=== PATIENT | female | born 1950 | race African-American/Black ===

== ENCOUNTER 2017-08-01 18:01 | Observation (INO) | payer MEDICARE, MEDICAID ==
[2017-08-01] MEDS ORDERED: hydrALAZINE 20 MG/ML VIAL ONE (18:41)
[2017-08-01] MEDS ORDERED: methylPREDNISolone Sod Succ/PF 125 MG/2 ML VIAL ONE (18:41)
[2017-08-01] MEDS ORDERED: Nitroglycerin 2% Ointment 1 INCH/1 GM Packet ONE (18:41)
[2017-08-01 18:42] LABS: #Eosinphils 0.6 thou/uL (0.0-0.7); #Lymphocytes 1.5 thou/uL (1.20-3.40); #Monocytes 0.7 thou/uL (0.11-0.59); #Neutrophils 3.6 thou/uL (1.40-6.50); %Basophils 0.6 % (0.0-1.0); %Eosinophils 9.7 % (0.0-10.0); %Lymphocytes 23.9 % (21.0-51.0); %Monocytes 10.4 % (0.0-10.0); Hematocrit 35.7 % (36.0-47.0); Mean Platelet Volume 8.8 fL (7.4-10.4); Red Blood Cell (RBC) Count 3.45 mill/uL (4.20-5.40); White Blood Cell (WBC) Count 6.4 thou/uL (4.8-10.8)
[2017-08-01] MEDS ORDERED: Water For Inject, Bacteriostat 30 ML ONE (18:44)
[2017-08-01 18:56] LABS: Lactic Acid - Sepsis 1.4 mmol/L (0.5-2.2)
[2017-08-01 19:00] LABS: CK (CPK) 92 U/L (29-168); Lipase 9 U/L (8-78)
[2017-08-01 19:04] LABS: ALT (SGPT) 10 U/L (8-55); AST (SGOT) 23 U/L (5-34); Alkaline Phosphatase 78 U/L (40-150); Anion Gap 12 mmol/L (10-20); BUN (Urea Nitrogen) 25 mg/dL (9.8-20.1); Bilirubin, Total 0.6 mg/dL (0.2-1.2); Calc. Creatinine Clearance 0 mL/min (70-130); Calcium 9.4 mg/dL (7.8-10.44); Carbon Dioxide 32 mmol/L (23-31); Chloride 99 mmol/L (98-107); Estimated GFR-MDRD 32; Globulin 4.9 g/dL (2.4-3.5); Protein, Total 8.4 g/dL (6.0-8.3)
[2017-08-01 19:04] LABS: Troponin I 0.013 ng/mL (< 0.028)
--- NOTE | 2017-08-01 19:38 | RAD ---
AP VIEW OF THE CHEST 08/01/17 INDICATION: Cough. COMPARISON: None. FINDINGS: There is cardiomegaly with pulmonary with pulmonary vascular congestion. No air space consolidation o r pleural effusions evident. No acute osseous abnormality is evident. IMPRESSION: Cardiomegaly with mild pulmonary vascular congestion. POS: [facility]
[2017-08-01] MEDS ORDERED: Acetaminophen 325 MG TAB PO PRN ×2 (21:21→23:26)
[2017-08-01] MEDS ORDERED: Ondansetron HCl/PF 4 MG/2 ML Vial IVP PRN ×2 (21:21→23:26)
[2017-08-01] MEDS ORDERED: Ondansetron ODT 4 MG TAB SL PRN (21:21)
[2017-08-01] MEDS ORDERED: Nitroglycerin 2% Ointment 1 INCH/1 GM Packet TOP SCH (21:30)
[2017-08-01 22:11] LABS: Troponin I 0.018 ng/mL (< 0.028)
[2017-08-01] MEDS ORDERED: hydrALAZINE 20 MG/ML VIAL SLOW IVP PRN ×2 (22:59→23:31)
[2017-08-01] MEDS ORDERED: Senokot 8.6 MG TAB PO PRN (23:26)
[2017-08-01] MEDS ORDERED: Ondansetron ODT 4 MG TAB PO PRN (23:26)
[2017-08-01] MEDS ORDERED: Nitroglycerin 0.4 MG TAB (25 Tab Bottle) PO PRN (23:26)
[2017-08-01] MEDS ORDERED: Cefdinir 300 MG CAP PO SCH (23:30)
[2017-08-01] MEDS ORDERED: Diabetic Tussin 200 MG/10 ML UDCUP PO PRN (23:32)
--- NOTE | 2017-08-02 | HP ---
DATE OF ADMISSION: 08/01/2017 PRIMARY CARE PHYSICIAN: Dr. Singleton at [facility]. CODE STATUS: FULL CODE. SURROGATE DECISION-MAKER: The patient makes her own decision with the help of her family. CHIEF COMPLAINT: Shortness of breath of 10 days duration. HISTORY OF PRESENT ILLNESS: The patient is a 66-year-old female with chronic respiratory failure on home oxygen, COPD, obstructive sleep apnea on BiPAP, and morbid obesity, presented to the emergency r oom with worsening shortness of breath over the last 10 days. The patient normally sees Dr. Rios and has a followup appointment later this month. She had some cough productive of thick whitish phlegm along with low grade fever. Shortness of breath continued to progress despite taking nebulization ev mae 4 hours. She also noticed worsening bilateral lower extremity swelling. Shortness of breath was worse on mild exertion. She denies recent immobilization, travel. She spends most of the time sitt ing on the wheelchair. No sick contacts reported. In the emergency room, her initial vital signs showed temperature 98.6, respiration of 21, pulse rate of 104 with blood pressure of 218/104 with O2 saturation of 93% on 4 liter nasal cannula. Chest x-r ay showed pulmonary vascular congestion with cardiomegaly. WBC counts were 6.4 without left shift. BNP was 110. She received 125 mg Solu-Medrol, 10 mg of IV hydralazine, aspirin with 1 inch nitro pat ch. Symptoms somewhat improved with the above measures. PAST MEDICAL HISTORY: 1. COPD. 2. Chronic respiratory failure on home oxygen at 3 liters continuous. 3. Morbid obesity. 4. Dyslipidemia. 5. Obstructive sleep apnea, on BiPAP. The patient does not remember her BiPAP settings. 6. Hypothyroidism. 7. Depression. 8. Gout. 9. Chronic anemia. 10. Chronic pain syndrome. 11. Degenerative joint disease. PAST SURGICAL HISTORY: 1. Exploratory laparotomy, details unavailable. 2. Total abdominal hysterectomy with bilateral salpingo-oophorectomy. ALLERGIES: The patient denies any drug allergies. CURRENT HOME MEDICATIONS: To be verified with the nursing facility. We will try to contact the [facility] for accurate list of medications. SOCIAL HISTORY: The patient currently lives at the nursing facility, she is . She spends mos t of the time on the wheelchair. She ambulates short distances with the help of a walker. No curren t use of alcohol, tobacco or drug use. FAMILY HISTORY: Father at age of 67 with heart disease. Mother with multiple TIAs. One br other with hepatic cancer. REVIEW OF SYSTEMS: The following complete review of systems was negative, unless otherwise mentioned in the HPI or below: Constitutional: Weight loss or gain, ability to conduct usual activities. Skin: Rash, itching. Eyes: Double vision, pain. ENT/Mouth: Nose bleeding, neck stiffness, pain, tenderness. Cardiovascular: Palpitations, dyspnea on exertion, orthopnea. Respiratory: Shortness of breath, wheezing, cough, hemoptysis, fever or night sweats. Gastrointestinal: Poor appetite, abdominal pain, heartburn, nausea, vomiting, constipation, or diarr hea. Genitourinary: Urgency, frequency, dysuria, nocturia. Musculoskeletal: Pain, swelling. Neurologic/Psychiatric: Anxiety, depression. Allergy/Immunologic: Skin rash, bleeding tendency. PHYSICAL EXAMINATION: VITAL SIGNS: As discussed above. GENERAL: A 66-year-old morbidly obese female in mild respiratory distress, audible wheezing heard, a ble to complete short phrases. HEENT: Head: Atraumatic, normocephalic. Sclerae anicteric. Moist mucous membranes. No oral lesio n. NECK: Supple, no JVD appreciated. No carotid bruit. LUNGS: Showed diffuse expiratory wheezing with scattered rhonchi. Lungs were symmetrical. Trachea midline. HEART: S1, S2 present. Regular rate and rhythm. No heaves or pulsation. No significant murmurs ap preciated. ABDOMEN: Obese, soft. Bowel sounds present. EXTREMITIES: A 2 to 3+ edema in bilateral lower extremities with some calf tenderness. SKIN: Warm and dry. LYMPH NODES: No palpable lymph nodes in the neck. PERIPHERAL VASCULAR: Radial pulses palpable bilaterally. MUSCULOSKELETAL: No joint swelling or tenderness. SKIN: Warm and dry. LABORATORY DATA AND X-RAY FINDINGS: CBC showed WBC 6.4 with hemoglobin 10.7, hematocrit 35.7, and pl atelet 223. Chemistries showed sodium 138, potassium 5, chloride 99, bicarbonate 32, BUN 25, creatin ine 1.61. Troponins were normal. Lactic acid 1.4. Echocardiogram from 2016 showed normal left vent ricular ejection fraction of 55% to 60%. Chest x-ray by my review as discussed above. EKG by my rev iew showed sinus rhythm without significant ST-T wave changes. Please note that the patient has two different medical records in our computer system. FINAL DIAGNOSES: 1. Hypertensive urgency. 2. Chronic obstructive pulmonary disease exacerbation. 3. Chronic respiratory failure on home oxygen. 4. Worsening bilateral lower extremity swelling, rule out deep venous thrombosis. 5. Dyslipidemia. 6. Obstructive sleep apnea on BiPAP, settings unknown. 7. Hypothyroidism. 8. Depression. 9. Gout. 10. Morbid obesity. 11. Chronic anemia secondary to iron deficiency. 12. Gastroesophageal reflux disease. 13. Physical deconditioning. PLAN: The patient will be monitored on the telemetry unit. We will confirm home medications and sta rt them accordingly. Nebulizer treatment every 4 hours. She received IV steroids in the emergency r oom. We will start her on oral steroids with antibiotics. We will start her on BiPAP after confirmi ng settings from [facility]. We will continue to monitor closely. Lifestyle modificatio n was emphasized. Deep venous thrombosis prophylaxis. We will also rule out thrombosis due to bilat eral lower extremity swelling as well as tenderness. Plan of care was discussed with the patient, she stated understanding.
[2017-08-02 00:01] VITALS: BMI 71.8
[2017-08-02 01:48] LABS: Troponin I 0.019 ng/mL (< 0.028)
[2017-08-02] MEDS: Levothyroxine Sodium 75 MCG TAB PO SCH (03:06)
[2017-08-02 04:54] LABS: #Lymphocytes 0.5 thou/uL (1.20-3.40); #Monocytes 0.1 thou/uL (0.11-0.59); #Neutrophils 3.8 thou/uL (1.40-6.50); %Lymphocytes 10.3 % (21.0-51.0); %Monocytes 1.8 % (0.0-10.0); Hematocrit 36.6 % (36.0-47.0); Mean Platelet Volume 8.1 fL (7.4-10.4); Red Blood Cell (RBC) Count 3.55 mill/uL (4.20-5.40); White Blood Cell (WBC) Count 4.4 thou/uL (4.8-10.8)
[2017-08-02 05:06] LABS: Anion Gap 10 mmol/L (10-20); BUN (Urea Nitrogen) 24 mg/dL (9.8-20.1); Calc. Creatinine Clearance 109 mL/min (70-130); Calcium 9.5 mg/dL (7.8-10.44); Carbon Dioxide 35 mmol/L (23-31); Chloride 98 mmol/L (98-107); Estimated GFR-MDRD 40
[2017-08-02] MEDS ORDERED: Budesonide 0.5 MG/2 ML NEB INH SCH (06:30)
[2017-08-02] MEDS: Cefdinir 300 MG CAP PO SCH ×2 (08:16→22:24)
[2017-08-02] MEDS: Docusate 100 MG CAP PO SCH ×2 (08:21→22:24)
[2017-08-02] MEDS: Furosemide 20 MG TAB PO SCH ×2 (08:21→14:54)
[2017-08-02] MEDS: Citalopram 20 MG TAB PO SCH (08:21)
[2017-08-02] MEDS: predniSONE 20 MG TAB PO SCH ×2 (08:21→18:41)
[2017-08-02] MEDS: Aspirin 81 mg Enteric Coated Tablet PO SCH (08:21)
[2017-08-02] MEDS: Famotidine 20 MG TAB PO SCH ×2 (08:21→22:24)
[2017-08-02] MEDS: Colchicine 0.6 MG TAB PO SCH (08:21)
[2017-08-02] MEDS: Enoxaparin Sodium 40 MG/0.4 ML SYRINGE SC SCH (08:22)
[2017-08-02] MEDS ORDERED: Mometasone/Formoterol 120 PUFF INHALER INH SCH (09:00)
[2017-08-02] MEDS ORDERED: Metoprolol Tartrate 25 MG TAB PO SCH (11:30)
--- NOTE | 2017-08-02 13:02 | PDOC.PN ---
- Subjective Encounter Start Date: 08/02/17 Encounter Start Time: 12:59 Subjective: feels about the same. still c/o SOB. -: c/o R sided abdominal pain. no nausea/vomiting.No constipation - Objective Resuscitation Status: Resuscitation Status FULL:Full Resuscitation MAR Reviewed: Yes Vital Signs & Weight: Vital Signs (12 hours) Temp Pulse Resp BP Pulse Ox 08/02/17 12:07 97.3 F L 87 22 H 188/88 H 94 L 08/02/17 11:44 96 16 08/02/17 11:36 96 16 08/02/17 08:15 98.1 F 94 22 H 08/02/17 07:55 98.1 F 94 22 H 185/84 H 94 L 08/02/17 06:28 96 08/02/17 06:27 92 12 08/02/17 03:08 97.6 F 97 24 H 171/77 H 93 L Weight Weight 445 lb 5.34 oz I&O: 08/01/17 08/02/17 08/03/17 06:59 06:59 06:59 Intake Total 180 250 Balance 180 250 Result Diagrams: 08/02/17 04:31 08/02/17 04:31 Phys Exam - Physical Examination Constitutional: NAD HEENT: PERRLA, moist MMs, sclera anicteric, oral pharynx no lesions Neck: no nodes, no JVD, supple, full ROM Respiratory: no rales, no rhonchi, wheezing present, clear to auscultation bilateral Cardiovascular: RRR, no significant murmur Gastrointestinal: soft, non-tender, no distention, positive bowel sounds morbidly obese.pitting edema Musculoskeletal: pulses present, edema present Neurological: non-focal, normal sensation, moves all 4 limbs Psychiatric: normal affect, A&O x 3 Skin: no rash Dx/Plan (1) Acute and chronic respiratory failure Code(s): J96.20 - ACUTE AND CHR RESP FAILURE, UNSP W HYPOXIA OR HYPERCAPNIA Status: Acute Qualifiers: Respiratory failure complication: hypoxia and hypercapnia Qualified Code(s) : J96.21 - Acute and chronic respiratory failure with hypoxia; J96.22 - Acute and chronic respiratory failure with hypercapnia; J96.22 - Acute and chronic respiratory failure with hypercapnia; J96.22 - Acute and chronic respiratory failure with hypercapnia (2) Acute exacerbation of chronic obstructive pulmonary disease (COPD) Code(s): J44.1 - CHRONIC OBSTRUCTIVE PULMONARY DISEASE W (ACUTE) EXACERBATION Status: Acute (3) Morbid obesity due to excess calories Code(s): E66.01 - MORBID (SEVERE) OBESITY DUE TO EXCESS CALORIES Status: Chronic (4) h/o SBO Status: Chronic (5) BORA (obstructive sleep apnea) Code(s): G47.33 - OBSTRUCTIVE SLEEP APNEA (ADULT) (PEDIATRIC) Status: Chronic Comment: BiPAP at night (6) Hypertensive urgency Code(s): I16.0 - HYPERTENSIVE URGENCY Status: Resolved (7) HTN (hypertension) Code(s): I10 - ESSENTIAL (PRIMARY) HYPERTENSION Status: Chronic - Plan plan discussed w/ family, continue antibiotics, PT/OT, respiratory therapy, incentive spirometry, out of bed/ambulate, DVT proph w/SCDs cont PO ABx,Po steroids.change budesonide to Dulera BID -: Stable to transfer to medical but not Dc from hospital yet d/t SOB -: Tried to get CT Abdo/pelvis but c/n/b done d/t size.will try KUB -: Clinically low suspicion of SBO.pt passing stools at usual frequency -: cont Supportive care.BiPAP at night. am labs * .BP still high. NO home meds listed for same. Will start on BB and titrate as needed Review of Systems - Review of Systems Constitutional: Weakness, Malaise. negative: Fever, Chills, Sweats, Other Eyes: negative: Pain, Vision Change, Conjunctivae Inflammation, Eyelid Inflammation, Redness, Other Respiratory: Shortness of Breath, SOB with Excertion. negative: Cough, Dry, Hemoptysis, Pleuritic Pain, Sputum, Wheezing Cardiovascular: negative: Chest Pain, Palpitations, Orthopnea, Paroxysmal Noc. Dyspnea, Edema, Light Headedness, Other Gastrointestinal: Abdominal Pain. negative: Nausea, Vomiting, Diarrhea, Constipation, Melena, Hematochezia, Other Genitourinary: negative: Dysuria, Frequency, Incontinence, Hematuria, Retention , Other Musculoskeletal: negative: Neck Pain, Shoulder Pain, Arm Pain, Back Pain, Hand Pain, Leg Pain, Foot Pain, Other Neurological: negative: Weakness, Numbness, Incoordination, Change in Speech, Confusion, Seizures, Other - Medications/Allergies Allergies/Adverse Reactions: Allergies Allergy/AdvReac Type Severity Reaction Status Date / Time No Known Drug Allergies Allergy Verified 08/02/17 01:53 Medications: Current Medications Acetaminophen (Tylenol) 650 mg PO Q4H PRN PRN Reason: Headache/Fever or Pain Acetaminophen/Codeine Phosphate (Tylenol #3) 1 tab PO Q6H PRN PRN Reason: Pain Albuterol/Ipratropium (Duoneb) 3 ml NEB [id number] [facility] Last Admin: 08/02/17 11:36 Dose: 3 ml Albuterol/Ipratropium (Duoneb) 3 ml NEB Q2H PRN PRN Reason: SOB &/or Wheezing Aspirin (Ecotrin) 81 mg PO DAILY [facility] Last Admin: 08/02/17 08:21 Dose: 81 mg Cefdinir (Omnicef) 300 mg PO BID [facility] Last Admin: 08/02/17 08:16 Dose: 300 mg Citalopram Hydrobromide (Celexa) 20 mg PO DAILY [facility] Last Admin: 08/02/17 08:21 Dose: 20 mg Colchicine (Colcrys) 0.6 mg PO DAILY [facility] Last Admin: 08/02/17 08:21 Dose: 0.6 mg Docusate Sodium (Colace) 100 mg PO BID [facility] Last Admin: 08/02/17 08:21 Dose: 100 mg Enoxaparin Sodium (Lovenox) 40 mg SC 0900 [facility] Last Admin: 08/02/17 08:22 Dose: 40 mg Famotidine (Pepcid) 20 mg PO BID [facility] Last Admin: 08/02/17 08:21 Dose: 20 mg Furosemide (Lasix) 20 mg PO 0900,1400 [facility] Last Admin: 08/02/17 08:21 Dose: 20 mg Guaifenesin (Robitussin Sf) 200 mg PO Q4H PRN PRN Reason: Cough Hydralazine HCl (Apresoline) 10 mg SLOW IVP Q4H PRN PRN Reason: SBP Greater Than 180 Levothyroxine Sodium (Synthroid) 75 mcg PO 0600 [facility] Last Admin: 08/02/17 03:06 Dose: 75 mcg Metoprolol Tartrate (Lopressor) 12.5 mg PO BID [facility] Metoprolol Tartrate (Lopressor) 12.5 mg PO NOW [facility] Stop: 08/02/17 13:30 Mometasone Furoate/Formoterol Fumar (Dulera 200 Mcg/5 Mcg Inhaler) 2 puff INH BID-RT [facility] Nitroglycerin (Nitrostat) 0.4 mg PO Q5MIN PRN PRN Reason: Chest Pain Ondansetron HCl (Zofran Odt) 4 mg PO Q6H PRN PRN Reason: Nausea/Vomiting Ondansetron HCl (Zofran) 4 mg IVP Q6H PRN PRN Reason: Nausea/Vomiting Prednisone (Prednisone) 20 mg PO BID-WM [facility] Last Admin: 08/02/17 08:21 Dose: 20 mg Senna (Senokot) 2 tab PO HSPRN PRN PRN Reason: Constipation Sodium Chloride (Flush - Normal Saline) 10 ml IVF Q12HR [facility] Sodium Chloride (Flush - Normal Saline) 10 ml IVF PRN PRN PRN Reason: Saline Flush
[2017-08-02] MEDS: Acetaminophen/Codeine 30-300mg Tablet PO PRN (14:51)
--- NOTE | 2017-08-02 15:55 | ULT ---
BILATERAL LOWER EXTREMITY VENOUS DUPLEX EXAM: History: Bilateral lower extremity leg edema and pain. FINDINGS: Real-time color doppler evaluation right and left lower extremities were performed from groin to calf . This includes evaluation of the common femoral, superficial and profunda femoral, saphenous, poplit eal and trifurcation veins. This shows patent deep venous systems bilaterally. There is normal compressibility and augmentation. There is no evidence of DVT. IMPRESSION: No evidence of DVT of either lower extremity. POS: [facility]
[2017-08-02] MEDS: Mometasone/Formoterol 120 PUFF INHALER INH SCH (18:48)
[2017-08-02] MEDS: Metoprolol Tartrate 25 MG TAB PO SCH (22:24)
[2017-08-03] MEDS: Levothyroxine Sodium 75 MCG TAB PO SCH (05:22)
[2017-08-03] MEDS: Mometasone/Formoterol 120 PUFF INHALER INH SCH (06:59)
[2017-08-03] MEDS: Furosemide 20 MG TAB PO SCH ×2 (08:59→13:43)
[2017-08-03] MEDS: Citalopram 20 MG TAB PO SCH (08:59)
[2017-08-03] MEDS: Colchicine 0.6 MG TAB PO SCH (08:59)
[2017-08-03] MEDS: Metoprolol Tartrate 25 MG TAB PO SCH (08:59)
[2017-08-03] MEDS: Aspirin 81 mg Enteric Coated Tablet PO SCH (08:59)
[2017-08-03] MEDS: predniSONE 20 MG TAB PO SCH (09:00)
[2017-08-03] MEDS: Docusate 100 MG CAP PO SCH (09:00)
[2017-08-03] MEDS: Cefdinir 300 MG CAP PO SCH (09:00)
[2017-08-03] MEDS: Famotidine 20 MG TAB PO SCH (09:00)
[2017-08-03] MEDS: Enoxaparin Sodium 40 MG/0.4 ML SYRINGE SC SCH (09:01)
[2017-08-03] MEDS ORDERED: Amlodipine 10 MG TAB PO SCH (09:15)
[2017-08-03 10:23] LABS: Anion Gap 11 mmol/L (10-20); BUN (Urea Nitrogen) 27 mg/dL (9.8-20.1); Calc. Creatinine Clearance 107 mL/min (70-130); Calcium 9.6 mg/dL (7.8-10.44); Carbon Dioxide 35 mmol/L (23-31); Chloride 99 mmol/L (98-107); Estimated GFR-MDRD 39
[2017-08-03 11:54] VITALS: TEMP 97.8
[2017-08-03] MEDS: Acetaminophen/Codeine 30-300mg Tablet PO PRN (13:43)
[2017-08-03 13:47] VITALS: BP 152/83
--- NOTE | 2017-08-04 01:52 | DIS ---
DATE OF ADMISSION: 08/01/2017 DATE OF DISCHARGE: 08/03/2017 CONDITION AT THE TIME OF DISCHARGE: Stable and improved. DISCHARGE DIAGNOSES: 1. Acute on chronic respiratory failure. 2. Acute exacerbation of chronic obstructive pulmonary disease with possible bronchitis. 3. Morbid obesity. 4. History of small bowel obstruction. 5. Obstructive sleep apnea, on BiPAP at home. 6. Hypertensive urgency on presentation, which resolved. 7. History of essential hypertension. DISCHARGE DISPOSITION: Back to [facility]. PRIMARY CARE PHYSICIAN: Dr. Singleton. DISCHARGE MEDICATIONS: Norvasc 10 mg daily, Omnicef 300 mg p.o. b.i.d., Dulera 2 puffs inhalation b. i.d., prednisone tapering dose, simvastatin 20 mg daily, Synthroid 75 mcg daily, ferrous sulfate 325 mg daily, colchicine 0.6 mg daily, Celexa 20 mg daily, Tylenol with Codeine as needed, Lasix 20 mg da yanci, Pepcid 20 mg daily. PROCEDURES DONE IN THE HOSPITAL: Include, 1. Chest x-ray upon presentation, which showed cardiomegaly and mild pulmonary vascular congestion. 2. Doppler ultrasound bilateral, which is negative for any DVT. HISTORY OF PRESENT ILLNESS: Ms. Johnson is a 66-year-old female who lives in [facility] and has a history of chronic respiratory failure on home oxygen due to COPD as well as morbid obesi ty and sleep apnea, who presented to the emergency room with complaints of shortness of breath of 10 days duration and noticing worsening bilateral lower extremity swelling. She was found to be hyperte nsive with a blood pressure of 218/104 upon presentation with adequate oxygen saturation. Chest x-ra y showed vascular congestion and cardiomegaly. BNP was 110. She was diagnosed with acute COPD exace rbation and received Solu-Medrol, hydralazine, aspirin, and nitropatch. Please see admission history and physical for further details. HOSPITAL COURSE: The patient was admitted under observation status and was treated with antibiotics and oral steroids along with nebulizers, oxygen. She had some slow improvement, but eventually retur jonna back to baseline. She did complain of some abdominal pain and gave history of small-bowel obstruction requiring surgery in the past. A CT scan was attempted, but had to be stopped because of her size. At this point, ava cantu is passing stools and has no nausea or vomiting and her abdominal pain has subsided. I have reques mino her to follow up with her general surgeon doctors, Dr. Armenta and Dr. Neely as an outpatient f or a possible scan. At this time, she is hemodynamically stable and arrangements were made for her t o return to [facility]. Her blood pressure was found to be significantly elevated while in the hospital. She was not on any antihypertensives at home. She was started on Norvasc with good improvement. Beta-blockers were tobias ided due to COPD. She was seen and examined prior to discharge. PHYSICAL EXAMINATION: VITAL SIGNS: Temperature 97.8, pulse of 77, respirations 20, saturating 100%, blood pressure 152/83. GENERAL: No acute distress, awake, alert, oriented. CHEST: Clear to auscultation without any wheezing. Rate and rhythm is regular without any murmurs. LABORATORY DATA: Blood culture negative x2. Influenza testing negative.
[2017-08-04] MEDS ORDERED: Amlodipine 10 MG TAB PO SCH (09:00)
== END 2017-08-03 15:15 ==
LOC: ERS 18:01 → 2SW 19:45 → SURG A 08-02 14:07
PROVIDERS: ADMIT Internal Medicine; ATTEND Internal Medicine
DX: I16.0 Hypertensive urgency (principal); J96.20 Acute and chronic respiratory failure, unspecified whether with hypoxia or hypercapnia; J44.1 Chronic obstructive pulmonary disease with (acute) exacerbation; I10 Essential (primary) hypertension; I51.7 Cardiomegaly; J44.9 Chronic obstructive pulmonary disease, unspecified; F32.9 Major depressive disorder, single episode, unspecified; M19.90 Unspecified osteoarthritis, unspecified site; E03.9 Hypothyroidism, unspecified; G47.33 Obstructive sleep apnea (adult) (pediatric); Z79.899 Other long term (current) drug therapy; E66.01 Morbid (severe) obesity due to excess calories; Z68.45 Body mass index [BMI] 70 or greater, adult; Z99.89 Dependence on other enabling machines and devices; Z99.81 Dependence on supplemental oxygen; Z90.710 Acquired absence of both cervix and uterus; Z90.722 Acquired absence of ovaries, bilateral; Z98.890 Other specified postprocedural states; Z82.49 Family history of ischemic heart disease and other diseases of the circulatory system
CPT/HCPCS: 71010; 80048 ×2; 80053; 82550; 82553; 83605; 83690; 83880; 84484 ×3; 85025 ×2; 87040; 87804 ×2; 93005; 93970; 94640 ×5; 94664; 96372; 96374; 96375; 97139; 97530; 99285; G0378; G8978; G8979; 36415; A4216; J0360; J1650; J2930; J7506; J7620; J7626

== ENCOUNTER 2018-12-09 23:28 | Emergency (ER) | payer MEDICARE, OTHER ==
--- NOTE | 2018-12-09 23:58 | RAD ---
RIGHT KNEE FOUR VIEWS: 12/09/18 HISTORY: Right knee pain. FINDINGS: There are marked degenerative changes in the right knee. These are similar to those seen on the exam of 01/25/16. No acute fracture or dislocation or bony destruction is identified. Loose intracapsular o sseous bodies in the right knee joint are again seen. IMPRESSION: Severe osteoarthritis of the right knee. No acute process. POS: [facility]
[2018-12-10 00:18] LABS: Bilirubin Negative (Negative); Blood, Urine Negative (Negative); Clarity CLEAR (Clear); Glucose, Urine (Dipstick) Negative (Negative); Leukocyte Negative (Negative); Nitrite Negative (Negative); Protein, Urine (Dipstick) 100 mg/dL (Neg-Trace); Specific Gravity, Urine 1.013 (1.002-1.036); Urobilinogen 0.2 mg/dL (0.2-1.0)
[2018-12-10 00:20] LABS: Bacteria/HPF None Seen HPF (None Seen); Hyaline Casts/LPF 0-3 HYALINE CAST LPF (0-3 Hyaline); Pathc Cast-AUWi Flag 0.54 (0-2.49); Squamous Epithelial 0-3 HPF (0-3); WBC/HPF None Seen HPF (0-3)
== END 2018-12-10 00:59 | disposition home or self-care (01) ==
LOC: ERS 23:28
DX: M17.11 Unilateral primary osteoarthritis, right knee (principal); R30.0 Dysuria; E78.5 Hyperlipidemia, unspecified; F32.9 Major depressive disorder, single episode, unspecified; F41.9 Anxiety disorder, unspecified; N18.6 End stage renal disease; J44.9 Chronic obstructive pulmonary disease, unspecified; M06.9 Rheumatoid arthritis, unspecified; Z79.899 Other long term (current) drug therapy
CPT/HCPCS: 51701; 81003; 81015; A4353